=== PATIENT | male | born 1970 | race Caucasian/White ===

== ENCOUNTER 2016-07-24 16:24 | Observation (INO) | payer MEDICAID, MEDICARE, OTHER ==
[2016-07-24 16:25] VITALS: BMI 29.2
[2016-07-24 17:35] LABS: BASO % 0.4 % (0.0-2.0); EOS # 0.1 K/uL (0.0-0.7); EOS % 2.1 % (0.0-4.0); HEMATOCRIT 43.5 % (35.0-51.0); LYMPH # 3.2 K/uL (1.0-4.3); LYMPH % 54.3 % (20.0-40.0); MEAN CELL VOLUME 79.4 fL (80.0-94.0); MEAN CORPUSCULAR HEMOGLOBIN 25.9 pg (27.0-31.0); MEAN CORPUSCULAR HGB CONC 32.7 g/dL (33.0-37.0); MEAN PLATELET VOLUME 8.9 fL (7.2-11.7); MONO # 0.6 K/uL (0.0-0.8); MONO % 9.8 % (0.0-10.0); NRBC % 0.1 % (0.0-2.0); RED CELL DISTRIBUTION WIDTH 14.1 % (11.5-14.5); WHITE BLOOD COUNT 5.8 K/uL (4.8-10.8)
--- NOTE | 2016-07-24 17:36 | RAD ---
HISTORY: chest pain COMPARISON: None available TECHNIQUE: Chest PA and lateral FINDINGS: LUNGS: No focal consolidation. Please note that chest x-ray has limited sensitivity for the detection of pulmonary masses. PLEURA: No significant pleural effusion identified. No definite pneumothorax . CARDIOVASCULAR: The cardiomediastinal silhouette appears within normal limits of size. OSSEOUS STRUCTURES: No acute osseous abnormality identified. VISUALIZED UPPER ABDOMEN: Unremarkable. OTHER FINDINGS: None. IMPRESSION: No focal consolidation, significant pleural effusion, or definite pneumothorax identified.
[2016-07-24 17:40] LABS: CHLORIDE 102 mmol/L (98-107); POTASSIUM 4.3 mmol/L (3.6-5.2); SODIUM 141 mmol/L (132-148)
[2016-07-24 17:42] LABS: ALB/GLOB RATIO 1.4 (1.0-2.1); ALKALINE PHOSPHATASE 68 U/L (38-126); AST/SGOT 23 U/L (17-59); BILIRUBIN,TOTAL 0.6 mg/dL (0.2-1.3); BLOOD UREA NITROGEN 21 mg/dL (9-20); CARBON DIOXIDE 28 mmol/L (22-30); GFR AFRICAN-AMERICAN > 60; TOTAL PROTEIN 7.7 g/dL (6.3-8.3)
[2016-07-24 17:43] LABS: ALT/SGPT 29 U/L (21-72); CALCIUM 9.1 mg/dl (8.6-10.4); GLUCOSE,RANDOM 83 mg/dL (75-110)
--- NOTE | 2016-07-24 17:51 | C.PDOC ---
History Of Present Illness 46-year-old male, presents to the emergency department with complaints of chest pain and bilateral lower back pain. Patient states he has been experiencing chest pain, that started one week ago. the pain is intermittent and feels as if "something is rupturing". Patient states he was seen by Dr Camacho, who referred him to the ED for further eval. Time Seen by Provider: 07/24/16 16:58 Chief Complaint (Nursing): Chest Pain History Per: Patient History/Exam Limitations: no limitations Onset/Duration Of Symptoms: Days Current Symptoms Are (Timing): Still Present Past Medical History Reviewed: Historical Data, Nursing Documentation, Vital Signs Vital Signs: Last Vital Signs Temp 97.6 F 07/24/16 17:16 Pulse 66 07/24/16 18:00 Resp 17 07/24/16 18:00 BP 105/78 07/24/16 18:00 Pulse Ox 98 07/24/16 18:00 - Medical History PMH: Fractures (left leg), Chronic Kidney Disease Surgical History: Endoscopy Family History: States: Unknown Family Hx - Social History Hx Alcohol Use: No Hx Substance Use: No - Immunization History Hx Tetanus Toxoid Vaccination: No Hx Influenza Vaccination: No Hx Pneumococcal Vaccination: No Review Of Systems Except As Marked, All Systems Reviewed And Found Negative. Constitutional: Negative for: Fever, Chills Cardiovascular: Positive for: Chest Pain. Negative for: Edema Gastrointestinal: Negative for: Vomiting Skin: Negative for: Rash Physical Exam - Physical Exam Appears: Well, No Acute Distress Skin: Normal Color, Warm, Dry, No Rash Head: Atraumatic, Normacephalic Eye(s): bilateral: Normal Inspection, PERRL, EOMI Nose: Normal Throat: Normal Neck: Normal Cardiovascular: Rhythm Regular Respiratory: Normal Breath Sounds Gastrointestinal/Abdominal: Normal Exam Back: Normal Inspection Extremity: Normal ROM ED Course And Treatment - Laboratory Results Result Diagrams: 07/24/16 17:28 07/24/16 17:28 Lab Interpretation: No Acute Changes ECG: Interpreted By Me ECG Rhythm: Sinus Rhythm (with LVH) ECG Interpretation: No Acute Changes O2 Sat by Pulse Oximetry: 98 Pulse Ox Interpretation: Normal - Radiology CXR: Interpreted by Me CXR Interpretation: Yes: No Acute Disease Reevaluation Time: 18:59 Reassessment Condition: Unchanged - Physician Consult Information Time Consulting Physician Contacted: 18:59 Physician Contacted: Edilma Camacho Outcome Of Conversation: Patient to remain in the hospital for cardiac observation. Disposition - Disposition Disposition: HOSPITALIZED Disposition Time: 19:00 Condition: STABLE - POA Present On Arrival: None - Clinical Impression Clinical Impression: Chest pain - Scribe Statement The provider has reviewed the documentation as recorded by the Scribe Yuni Padilla All medical record entries made by the Yasmanyibe were at my direction and personally dictated by me. I have reviewed the chart and agree that the record accurately reflects my personal performance of the history, physical exam, medical decision making, and the department course for this patient. I have also personally directed, reviewed, and agree with the discharge instructions and disposition.
[2016-07-24] MEDS ORDERED: Aspirin 325 mg EC Tablets PO STA (19:12)
[2016-07-24] MEDS ORDERED: Aspirin 325 mg EC Tablets PO ONE (19:17)
--- NOTE | 2016-07-25 09:11 | CP.PCM.PN ---
Objective - Vital Signs/Intake and Output Vital Signs (last 24 hours): Temp Pulse Resp BP Pulse Ox 97.2 F L 61 20 114/76 98 07/25/16 07:46 07/25/16 07:46 07/25/16 07:46 07/25/16 07:46 07/25/16 07:46 Intake and Output: 07/25/16 07/25/16 06:59 18:59 Intake Total 110 Balance 110 - Medications Medications: Current Medications Aspirin (Aspirin) 325 mg PO DAILY [facility] Clopidogrel Bisulfate (Plavix) 75 mg PO DAILY [facility] Heparin Sodium (Porcine) (Heparin) 5,000 units SC Q12 [facility]
[2016-07-25 13:35] LABS: BASO % 0.6 % (0.0-2.0); EOS # 0.1 K/uL (0.0-0.7); EOS % 1.3 % (0.0-4.0); HEMATOCRIT 46.7 % (35.0-51.0); LYMPH # 2.7 K/uL (1.0-4.3); LYMPH % 50.6 % (20.0-40.0); MEAN CELL VOLUME 80.1 fL (80.0-94.0); MEAN CORPUSCULAR HEMOGLOBIN 25.8 pg (27.0-31.0); MEAN CORPUSCULAR HGB CONC 32.2 g/dL (33.0-37.0); MEAN PLATELET VOLUME 8.6 fL (7.2-11.7); MONO # 0.5 K/uL (0.0-0.8); MONO % 9.3 % (0.0-10.0); WHITE BLOOD COUNT 5.4 K/uL (4.8-10.8)
[2016-07-25 13:44] LABS: CHLORIDE 92 mmol/L (98-107); POTASSIUM 3.8 mmol/L (3.6-5.2); SODIUM 142 mmol/L (132-148)
[2016-07-25 13:46] LABS: GFR AFRICAN-AMERICAN > 60
[2016-07-25 13:47] LABS: ALB/GLOB RATIO 1.3 (1.0-2.1); ALKALINE PHOSPHATASE 72 U/L (38-126); ALT/SGPT 30 U/L (21-72); AST/SGOT 24 U/L (17-59); BILIRUBIN,TOTAL 0.7 mg/dL (0.2-1.3); BLOOD UREA NITROGEN 17 mg/dL (9-20); CALCIUM 9.5 mg/dl (8.6-10.4); CARBON DIOXIDE 28 mmol/L (22-30); GLUCOSE,RANDOM 107 mg/dL (75-110); TOTAL PROTEIN 7.8 g/dL (6.3-8.3)
[2016-07-25 13:48] LABS: MAGNESIUM 2.2 mg/dL (1.6-2.3)
--- NOTE | 2016-07-25 14:46 | CP.PCM.CON ---
History of Present Illness - History of Present Illness History of Present Illness: I was asked to see patient by Dr. Camacho. Patient is a 46 year old male with PMH HTN, hypercholesterolemia who presents with chest pain. He describes substernal chest pressure wthout radiation. Symptoms occurred with walking. The patient had associated dyspnea. He ruled out for myocardial infarction. Review of Systems - Constitutional Constitutional: absent: As Per HPI, Anorexia, Chills, Daytime Sleepiness, Excessive Sweating, Fatigue, Fever, Frequent Falls, Headache, Increased Appetite , Lethargy, Malaise, Night Sweats, Snoring, Sleep Apnea, Weight Gain, Weight Loss, Weakness, Other - EENT Eyes: absent: As Per HPI, Blind Spots, Blurred Vision, Change in Vision, Decreased Night Vision, Diplopia, Discharge, Dry Eye, Exophthalmos, Floaters, Irritation, Itchy Eyes, Loss of Peripheral Vision, Pain, Photophobia, Requires Corrective Lenses, Sees Flashes, Spots in Vision, Tunnel Vision, Other Visual Disturbances, Loss of Vision, Other Ears: absent: As Per HPI, Decreased Hearing, Ear Discharge, Ear Pain, Tinnitus, Abnormal Hearing, Disequilibrium, Dizziness, Other Nose/Mouth/Throat: absent: As Per HPI, Epistaxis, Nasal Congestion, Nasal Discharge, Nasal Obstruction, Nasal Trauma, Nose Pain, Post Nasal Drip, Sinus Pain, Sinus Pressure, Bleeding Gums, Change in Voice, Dental Pain, Dry Mouth, Dysphagia, Halitosis, Hoarsness, Lip Swelling, Mouth Lesions, Mouth Pain, Odynophagia, Sore Throat, Throat Swelling, Tongue Swelling, Facial Pain, Neck Pain, Neck Mass, Other - Cardiovascular Cardiovascular: Chest Pain at Rest, Dyspnea - Respiratory Respiratory: absent: As Per HPI, Cough, Dyspnea, Hemoptysis, Dyspnea on Exertion , Wheezing, Snoring, Stridor, Pain on Inspiration, Chest Congestion, Excessive Mucous Production, Change in Mucous Color, Pain with Coughing, Other - Gastrointestinal Gastrointestinal: absent: As Per HPI, Abdominal Pain, Belching, Bloating, Change in Bowel Habits, Change in Stool Character, Coffee Ground Emesis, Constipation, Cramping, Diarrhea, Dyspepsia, Dysphagia, Early Satiety, Excessive Flatus, Fecal Incontinence, Heartburn, Hematemesis, Hematochezia, Loose Stools, Melena, Nausea, Odynophagia, Temesmus, Vomiting, Other - Genitourinary Genitourinary: absent: As Per HPI, Change in Urinary Stream, Difficulty Urinating, Dysuria, Flank Pain, Hematuria, Pyuria, Nocturia, Urinary Incontinence, Urinary Frequency, Urinary Hesitance, Urinary Urgency, Voiding Freq/Small Amts, Freq UTI, Hx Renal/Bladder Calculi, Hx /Renal Surgery, Bladder Distension, Other - Musculoskeletal Musculoskeletal: absent: As Per HPI, Abnormal Gait, Arthralgias, Atrophy, Back Pain, Deformity, Joint Swelling, Limited Range of Motion, Loss of Height, Muscle Cramps, Muscle Weakness, Myalgias, Neck Pain, Numbness, Radiating Pain into Limb, Stiffness, Tingling, Other - Integumentary Integumentary: absent: As Per HPI, Acne, Alopecia, Bleeding Lesions, Change in Hair, Change in Nails, Change in Pigmentation, Changing Lesions, Dry Skin, Erythema, Furuncle, Hirsutism, Lesions, New Lesions, Non-Healing Lesions, Photosensitivity, Pruritus, Rash, Skin Pain, Skin Ulcer, Sores, Striae, Swelling , Unusual Bruising, Wounds, Jaundice, Other - Neurological Neurological: absent: As Per HPI, Abnormal Gait, Abnormal Hearing, Abnormal Movements, Abnormal Speech, Behavioral Changes, Burning Sensations, Confusion, Convulsions, Disequilibrium, Dizziness, Numbness, Focal Weakness, Frequent Falls , Headaches, Lack of Coordination, Loss of Vision, Memory Loss, Paresthesias, Radicular Pain, Restless Legs, Sensory Deficit, Syncope, Tingling, Tremor, Vertigo, Weakness, Other Visual Disturbances, Other - Psychiatric Psychiatric: absent: As Per HPI, Abnormal Sleep Pattern, Anhedonia, Anxiety, Auditory Hallucinations, Behavioral Changes, Change in Appetite, Change in Libido, Confusion, Depression, Difficulty Concentrating, Hallucinations, Homicidal Ideation, Hopelessness, Irritability, Memory Loss, Mood Swings, Panic Attacks, Paranoia, Suicidal Ideation, Visual Hallucinations, Tactile Hallucinations, Other - Endocrine Endocrine: absent: As Per HPI, Change in Body Appearance, Change in Libido, Cold Intolorance, Deepening of Voice, Excessive Sweating, Fatigue, Flushing, Heat Intolorance, Increase in Ring/Shoe/Hat Size, Palpitations, Polydipsia, Polyphagia, Polyuria, Other - Hematologic/Lymphatic Hematologic: absent: As Per HPI, Easy Bleeding, Easy Bruising, Lymphadenopathy, Other Past Patient History - Past Medical History & Family History Past Medical History?: Yes - Past Social History Smoking Status: Never Smoked - CARDIAC Hx Cardiac Disorders: No - PULMONARY Hx Respiratory Disorders: No - NEUROLOGICAL Hx Neurological Disorder: No - HEENT Hx HEENT Problems: No - RENAL Hx Chronic Kidney Disease: Yes Other/Comment: hydronephrosis - ENDOCRINE/METABOLIC Hx Endocrine Disorders: Yes Hx Diabetes Mellitus Type 2: No - HEMATOLOGICAL/ONCOLOGICAL Hx Blood Disorders: No - INTEGUMENTARY Hx Dermatological Problems: Yes Other/Comment: sebaceous cyst right shoulder - MUSCULOSKELETAL/RHEUMATOLOGICAL Hx Musculoskeletal Disorders: No Hx Falls: No - GASTROINTESTINAL Hx Gastrointestinal Disorders: Yes Hx Hemorrhoids: Yes - GENITOURINARY/GYNECOLOGICAL Hx Genitourinary Disorders: No - PSYCHIATRIC Hx Psychophysiologic Disorder: No Hx Substance Use: No - SURGICAL HISTORY Hx Surgeries: Yes Other/Comment: Hemorrhoidectomy,right shoulder surgery - ANESTHESIA Hx Anesthesia: Yes Hx Anesthesia Reactions: No Hx Malignant Hyperthermia: No Meds Home Medications: Home Medication List Medication Instructions Recorded Confirmed Type Aspirin 81 mg PO DAILY #30 tab.chew 07/25/16 Rx Allergies/Adverse Reactions: Allergies Allergy/AdvReac Type Severity Reaction Status Date / Time No Known Allergies Allergy Verified 07/24/16 17:09 - Medications Medications: Current Medications Aspirin (Aspirin) 325 mg PO DAILY [facility] Last Admin: 07/25/16 14:15 Dose: 325 mg Clopidogrel Bisulfate (Plavix) 75 mg PO DAILY [facility] Last Admin: 07/25/16 14:15 Dose: 75 mg Heparin Sodium (Porcine) (Heparin) 5,000 units SC Q12 [facility] Last Admin: 07/25/16 10:00 Dose: Not Given Physical Exam - Constitutional Appears: Non-toxic - Head Exam Head Exam: NORMAL INSPECTION - Eye Exam Eye Exam: Normal appearance - ENT Exam ENT Exam: Mucous Membranes Moist - Neck Exam Neck exam: Positive for: Full Rom - Respiratory Exam Respiratory Exam: Decreased Breath Sounds - Cardiovascular Exam Cardiovascular Exam: REGULAR RHYTHM - GI/Abdominal Exam GI & Abdominal Exam: Normal Bowel Sounds - Rectal Exam Rectal Exam: Deferred - Extremities Exam Extremities exam: Negative for: pedal edema - Back Exam Back exam: NORMAL INSPECTION - Neurological Exam Neurological exam: Alert, Oriented x3 - Psychiatric Exam Psychiatric exam: Normal Affect - Skin Skin Exam: Normal Color Results - Vital Signs Recent Vital Signs: Last Vital Signs Temp 97.2 F L 07/25/16 07:46 Pulse 61 07/25/16 07:46 Resp 20 07/25/16 07:46 BP 114/76 07/25/16 07:46 Pulse Ox 98 07/25/16 07:46 - Labs Result Diagrams: 07/25/16 13:28 07/25/16 13:28 Labs: Laboratory Results - last 24 hr 07/25/16 07/25/16 07/25/16 02:25 13:28 13:28 WBC 5.4 RBC 5.83 Hgb 15.0 Hct 46.7 MCV 80.1 MCH 25.8 L MCHC 32.2 L RDW 14.0 Plt Count 322 MPV 8.6 Neut % (Auto) 38.2 L Lymph % (Auto) 50.6 H Rhea % (Auto) 9.3 Eos % (Auto) 1.3 Baso % (Auto) 0.6 Neut # 2.1 Lymph # 2.7 Rhea # 0.5 Eos # 0.1 Baso # 0.0 Sodium 142 Potassium 3.8 Chloride 92 L Carbon Dioxide 28 Anion Gap 26 H BUN 17 Creatinine 0.8 Est GFR ( Amer) > 60 Est GFR (Non-Af Amer) > 60 Random Glucose 107 Calcium 9.5 Magnesium 2.2 Total Bilirubin 0.7 AST 24 ALT 30 Alkaline Phosphatase 72 Total Creatine Kinase 183 H CK-MB (Mass) 0.99 Troponin I, Quant 0.0210 Total Protein 7.8 Albumin 4.4 Globulin 3.3 Albumin/Globulin Ratio 1.3 - EKG Data EKG Interpreted by: Myself Assessment & Plan - Assessment and Plan (Free Text) Assessment: chest pain. patient has ruled out for myocardial infarction. recommend stress test to assess for myocardial ischemia. risk factor modification discussed. - Date & Time Date: 07/25/16 Time: 09:30
--- NOTE | 2016-07-25 14:48 | CP.PCM.PN ---
Subjective - Date & Time of Evaluation Date of Evaluation: 07/25/16 Time of Evaluation: 14:45 - Subjective Subjective: nuclear stress test is normal. Patient is stable for discharge Objective - Vital Signs/Intake and Output Vital Signs (last 24 hours): Temp Pulse Resp BP Pulse Ox 97.2 F L 61 20 114/76 98 07/25/16 07:46 07/25/16 07:46 07/25/16 07:46 07/25/16 07:46 07/25/16 07:46 Intake and Output: 07/25/16 07/25/16 06:59 18:59 Intake Total 110 Balance 110 - Medications Medications: Current Medications Aspirin (Aspirin) 325 mg PO DAILY [facility] Last Admin: 07/25/16 14:15 Dose: 325 mg Clopidogrel Bisulfate (Plavix) 75 mg PO DAILY [facility] Last Admin: 07/25/16 14:15 Dose: 75 mg Heparin Sodium (Porcine) (Heparin) 5,000 units SC Q12 [facility] Last Admin: 07/25/16 10:00 Dose: Not Given - Labs Labs: 07/25/16 13:28 07/25/16 13:28
[2016-07-25 15:40] VITALS: BP 121/74; PULSE 59; RESP 18; TEMP 97.4; O2SAT 96
--- NOTE | 2016-07-25 15:45 | CP.PCM.PN ---
Subjective - Date & Time of Evaluation Date of Evaluation: 07/25/16 Time of Evaluation: 12:00 - Subjective Subjective: Medicine Progress - Dr. Camacho's Service: Patient seen and examined at bedside this AM. Patient reports no chest pain this morning. He went for stress test this AM, which was normal. Patient will be discharged today with Aspirin 81 mg PO daily as per Dr. Camacho. Interpreting service used. Objective - Vital Signs/Intake and Output Vital Signs (last 24 hours): Temp Pulse Resp BP Pulse Ox 97.4 F L 59 L 18 121/74 96 07/25/16 15:37 07/25/16 15:37 07/25/16 15:37 07/25/16 15:37 07/25/16 15:37 Intake and Output: 07/25/16 07/25/16 06:59 18:59 Intake Total 110 Balance 110 - Medications Medications: Current Medications Aspirin (Aspirin) 325 mg PO DAILY [facility] Last Admin: 07/25/16 14:15 Dose: 325 mg Clopidogrel Bisulfate (Plavix) 75 mg PO DAILY [facility] Last Admin: 07/25/16 14:15 Dose: 75 mg Heparin Sodium (Porcine) (Heparin) 5,000 units SC Q12 [facility] Last Admin: 07/25/16 10:00 Dose: Not Given - Labs Labs: 07/25/16 13:28 07/25/16 13:28 - Constitutional Appears: No Acute Distress - Head Exam Head Exam: NORMAL INSPECTION, NORMOCEPHALIC - Eye Exam Eye Exam: EOMI, Normal appearance - ENT Exam ENT Exam: Mucous Membranes Moist - Neck Exam Neck Exam: Full ROM - Respiratory Exam Respiratory Exam: Clear to Ausculation Bilateral, NORMAL BREATHING PATTERN - Cardiovascular Exam Cardiovascular Exam: REGULAR RHYTHM, +S1, +S2 - GI/Abdominal Exam GI & Abdominal Exam: Soft. absent: Distended, Tenderness - Extremities Exam Extremities Exam: Full ROM, Normal Inspection - Back Exam Back Exam: NORMAL INSPECTION - Neurological Exam Neurological Exam: Alert, Awake, Oriented x3 - Psychiatric Exam Psychiatric exam: Normal Affect, Normal Mood - Skin Skin Exam: Normal Color, Warm Assessment and Plan (1) Chest pain Assessment & Plan: Cardio consult - Dr. Maxwell. MANUEL negative X2 EKG Normal sinus rhythm. Moderate voltage criteria for LVH Patient was placed on Plavix, ASA and Crestor. Nuclear Stress test done today was normal. Patient stable for discharge as per cardio. Patient DC with Aspirin 81 mg PO daily as per Dr. Maxwell. f/u ECHO results as outpatient. Patient discharged as per Dr. Camacho. Status: Acute
--- NOTE | 2016-07-25 18:00 | CARD ---
APPROVED REPORT Protocol: LUPE Test Type: MYOVIEW STRESS Test Indications: CHEST PAIN Medications: LIST SCAN Target HR: 175 bpm Resting ECG: normal Resting Heart Rate: 69 bpm Resting Blood Pressure: /mmHg submaximum (85%): 149 bpm TEST SUMMARY [id number]:02..1.068/.0. PRETESTWARM-UP01:511.00.01.768/.0. EXERCISESTAGE 103:[id number]/80.0. EXERCISESTAGE 203:[id number]/80.0. EXERCISESTAGE 303:[id number]/80.0. EXERCISESTAGE 400:154.279.942.5253/.0. [id number]:[id number]/80.0. POST EXERCISE Reason for Termination: Target heart rate achieved Target HR: No Max HR: 136 bpm 80% of Maximum Predicted HR: 175 bpm Exercise duration: 09:14 min:sec, 4 Stage Exercise capacity: 10.8METs Max Blood Pressure: 166/80mmHg Blood Pressure response to exercise: normal resting BP - appropriate response Heart Rate response to exercise: appropriate Chest Pain: No, none Angina index: 0 Arrhythmia: No, none ST Change: No, none Deviation: 0 mm INTERPRETATION Stress EKG Conclusion: AWAIT NUCLEAR IMAGES EXAM: Myocardial Perfusion REST/STRESS Imaging Protocol The imaging protocol used to acquire images was Rest Tc-99m/stress Tc-99m 1 day Rest Spect myocardial perfusion imaging was performed in supine position 45 minutes following the injection of 13.1 mCi of Tc-99 Myoview. Gated Stress Spect was performed 55 minutes after intravenous 32.3 mci Tc-99 Myoview injection. The images were gated to evaluate regional wall motion and calculate ventricular ejection fraction.Images were reconstructed using backfilter projection method in short horizontal and verticle long axis. Spect slices were generated. STRESS DATA EDV86.38jsGD2.20L/min ESV22.00mlMyocardial Rfes105.00g EF74.00% Regional WT score at stress:0.00 Regional WM score at stress:0.00 Summed WT score at stress:4.00 Av. Heart Rate66.00bpmSummed WM score at stress:0.00 LV Perf. Quant 17 Seg. SSS0.00 17 Seg. SRS2.00 17 Seg. SDS0.00 Stress Defect Extent (% LAD)0.00Rest Defect Extent (% LAD)0.00Rev. Defect Extent (% LAD)0.00 Stress Defect Extent (% LCX)0.00Rest Defect Extent (% LCX)17.50Rev. Defect Extent (% LCX)0.00 Stress Defect Extent (% RCA)0.00Rest Defect Extent (% RCA)0.00Rev. Defect Extent (% RCA)0.00 Stress Defect Extent (% SOPHIE)0.00Rest Defect Extent (% SOPHIE)4.10Rev. Defect Extent (% SOPHIE)0.00 Other Information Quality:Excellent Overall Exercise Capacity: Normal IMPRESSION Normal Myocardial Perfusion exercise stress study Global LV Function: Normal Stress Test Summary: Normal LV Perfusion Summary: Normal Left Ventricle LV Size/Shape: The left ventricle is normal size. LV Function:Left ventricle systolic function is normal. The Ejection Fraction is 55-60%. Regional Wall Motion:No regional wall motion abnormalities noted. Metabolism/Perfusion There are no perfusion/metabolism defects. Conclusion 1. The stress and resting images show normal perfusion.
--- NOTE | 2016-07-26 07:51 | CARD ---
APPROVED REPORT EXAM: Two-dimensional and M-mode echocardiogram with Doppler and color Doppler. Other Information Quality : AverageGoodRhythm : NSR INDICATION Chest Pain CKD M-Mode DIMENSIONS RVDd2.34 (2.1-3.2cm)Left Atrium (MM)3.83 (2.5-4.0cm) IVSd0.73 (0.7-1.1cm)Aortic Root2.19 (2.2-3.7cm) LVDd4.49 (4.0-5.6cm)Aortic Cusp Exc.1.70 (1.5-2.0cm) PWd0.70 (0.7-1.1cm)FS (%) 31 % LVDs3.10 (2.0-3.8cm)LVEF (%)59 (>50%) Mitral Valve MV E Bkhanwth92.3cm/sMV A Wtyodrcj35.6cm/sE/A ratio1.3 TDI E/Lateral E'0.0E/Medial E'0.0 Tricuspid Valve TR Peak Yqtysguk915kx/sTR Peak Gr.22isHdIPRY07kyRy LEFT VENTRICLE The left ventricle is normal size. There is normal left ventricular wall thickness. The left ventricular function is normal. The left ventricular ejection fraction is within the normal range. The Ejection Fraction is >55%. No regional wall motion abnormalities noted. The left ventricular diastolic function is normal. No left ventricle thrombus noted on this study. There is no ventricular septal defect visualized. There is no left ventricular aneurysm. There is no mass noted in the left ventricle. RIGHT VENTRICLE The right ventricle is normal size. There is normal right ventricular wall thickness. The right ventricular systolic function is normal. ATRIA The left atrium size is normal. The right atrium size is normal. The interatrial septum is intact with no evidence for an atrial septal defect. AORTIC VALVE The aortic valve is normal in structure and function. No aortic regurgitation is present. There is no aortic valvular stenosis. There is no aortic valvular vegetation. MITRAL VALVE The mitral valve is normal in structure and function. There is no evidence of mitral valve prolapse. There is no mitral valve stenosis. There is no mitral valve regurgitation noted. TRICUSPID VALVE The tricuspid valve is normal in structure and function. There is trace tricuspid regurgitation. There is no tricuspid valve prolapse or vegetation. There is no tricuspid valve stenosis. PULMONIC VALVE The pulmonary valve is normal in structure and function. There is no pulmonic valvular regurgitation. There is no pulmonic valvular stenosis. GREAT VESSELS The aortic root is normal in size. The ascending aorta is normal in size. The pulmonary artery is normal. The IVC is normal in size and collapses >50% with inspiration. PERICARDIAL EFFUSION The pericardium appears normal. There is no pleural effusion. <Conclusion> The left ventricle is normal size. The left ventricular function is normal. The left ventricular ejection fraction is within the normal range. The Ejection Fraction is >55%. There is trace tricuspid regurgitation.
--- NOTE | 2016-07-29 10:10 | CARD ---
APPROVED REPORT EKG Measurement Heart [id number] VA [id number] [id number] <Conclusion> Normal sinus rhythm Moderate voltage criteria for LVH, may be normal variant Borderline ECG
--- NOTE | 2016-08-16 11:22 | HP ---
The patient admitted to the hospital with chief complaint of generalized weakness, fatigue, tiredness . The patient bedrest and advised admission. PHYSICAL EXAMINATION: GENERAL: The patient is awake, alert, oriented. VITAL SIGNS: Temperature 98, pulse 90. HEENT: Within normal limits. NECK: Supple. CHEST: Symmetrical. HEART: Regular. ABDOMEN: Soft. EXTREMITIES: No edema. The patient will get bedrest, supportive care. Edilma Shearer MD cc: [id number] TT: 08/16/2016 07:49:30 en 08/20/2016 07:18:10
== END 2016-07-25 16:35 | disposition home or self-care (01) ==
LOC: C.ER 16:24 → C.9E 19:00 → C.6T 20:33
PROVIDERS: ADMIT Internal Medicine Pulmonary Disease; ATTEND Internal Medicine Pulmonary Disease
DX: R07.9 Chest pain, unspecified (principal); E78.00 Pure hypercholesterolemia, unspecified; I12.9 Hypertensive chronic kidney disease with stage 1 through stage 4 chronic kidney disease, or unspecified chronic kidney disease
CPT/HCPCS: 36415; 71020; 78452; 80053; 82948; 83690; 83735; 84484; 85025; 93005; 93017; 93306; 99285; A9502; G0378

== ENCOUNTER 2017-01-22 16:09 | Emergency (ER) | payer OTHER ==
[2017-01-22 16:10] VITALS: BMI 29.2
[2017-01-22 16:21] VITALS: O2SAT 99
--- NOTE | 2017-01-22 17:04 | C.PDOC ---
History Of Present Illness 46 y/o male c/o left anterior chest wall and left hip pain today. Patient notes that he was on a chair on top of a desk when he fell hitting his left anterior chest wall on the edge of the desk. The patient then fell on the floor hitting his left hip. He had the breath out him. Patient was able to ambulate, but with pain. Patient went to see his PMD Dr. Camacho who sent him here for evaluation and a CXR. Denies head injury, weakness, or numbness. No SOB or abdominal pain. - HPI Time Seen by Provider: 01/22/17 16:34 Chief Complaint (Nursing): Trauma History Per: Patient History/Exam Limitations: no limitations Onset/Duration Of Symptoms: Hrs Severity: Mild Recent travel outside of the [place]: No Additional History Per: Patient - Fall Fall:Prior To Injury: Other (Fell out of a chair on top of a desk) Past Medical History Reviewed: Historical Data, Nursing Documentation, Vital Signs Vital Signs: Last Vital Signs Temp 97.3 F L 01/22/17 16:16 Pulse 63 01/22/17 16:16 Resp 20 01/22/17 16:16 BP 133/80 01/22/17 16:16 Pulse Ox 99 01/22/17 17:14 - Medical History PMH: Fractures (left leg), Chronic Kidney Disease Surgical History: Endoscopy Family History: States: Unknown Family Hx - Social History Hx Alcohol Use: No Hx Substance Use: No - Immunization History Hx Tetanus Toxoid Vaccination: No Hx Influenza Vaccination: No Hx Pneumococcal Vaccination: No Review Of Systems Except As Marked, All Systems Reviewed And Found Negative. Constitutional: Negative for: Other (Head injury) Cardiovascular: Positive for: Chest Pain Respiratory: Negative for: Shortness of Breath Musculoskeletal: Positive for: Other (Left hip pain) Neurological: Negative for: Weakness, Numbness, Dizziness Physical Exam - Physical Exam Appears: Non-toxic, No Acute Distress (Discomfort when taking deep breath) Skin: Warm, Dry, Other (No bruising or laceration noted throughout the body) Head: Atraumatic (Neck nor head), Normacephalic Eye(s): bilateral: Normal Inspection Neck: Supple Chest: Symmetrical, Tenderness (Chest wall tenderness to the anterior nipple line along the lower ribs) Cardiovascular: Rhythm Regular, No Murmur Respiratory: Normal Breath Sounds, No Rales, No Rhonchi, No Wheezing Gastrointestinal/Abdominal: Soft, No Tenderness Back: Normal Inspection, No CVA Tenderness Extremity: Normal ROM (FROM of hip) Neurological/Psych: Oriented x3 Gait: Steady ED Course And Treatment - Laboratory Results Result Diagrams: 01/22/17 17:07 01/22/17 17:07 Lab Interpretation: Normal O2 Sat by Pulse Oximetry: 99 (RA) Pulse Ox Interpretation: Normal - Radiology CXR Interpretation: Yes: No Acute Disease, Other (Rib films also negative for acute displaced fracture.) Reevaluation Time: 17:51 Reassessment Condition: Improved - Physician Consult Information Time Consulting Physician Contacted: 18:01 Physician Contacted: Edilma Camacho Outcome Of Conversation: He will follow up with patient in the office. Medical Decision Making Medical Decision Making: Plans: * Blood labs * CXR * UA * IV fluids * Dilaudid Disposition Counseled Patient/Family Regarding: Studies Performed, Diagnosis, Need For Followup, Rx Given - Disposition Referrals: Edilma Camacho MD [Staff Provider] - Disposition: HOME/ ROUTINE Disposition Time: 17:58 Condition: IMPROVED Prescriptions: Tramadol HCl [Ultram] 50 mg PO QID PRN #14 tab PRN Reason: Pain, Severe (8-10) Instructions: Rib Contusion (ED) Forms: [facility] (Yakut) - Clinical Impression Clinical Impression: Contusion of rib on left side - Scribe Statement The provider has reviewed the documentation as recorded by the Scribe Terrie patterson All medical record entries made by the Scribe were at my direction and personally dictated by me. I have reviewed the chart and agree that the record accurately reflects my personal performance of the history, physical exam, medical decision making, and the department course for this patient. I have also personally directed, reviewed, and agree with the discharge instructions and disposition.
[2017-01-22] MEDS ORDERED: HYDROmorphone 1 mg/ml ISec ONE (17:12)
[2017-01-22 17:16] LABS: BASO % 0.5 % (0.0-2.0); EOS # 0.1 K/uL (0.0-0.7); EOS % 1.4 % (0.0-4.0); HEMATOCRIT 44.1 % (35.0-51.0); LYMPH # 2.7 K/uL (1.0-4.3); LYMPH % 41.3 % (20.0-40.0); MEAN CELL VOLUME 79.2 fL (80.0-94.0); MEAN CORPUSCULAR HEMOGLOBIN 26.1 pg (27.0-31.0); MEAN CORPUSCULAR HGB CONC 32.9 g/dL (33.0-37.0); MEAN PLATELET VOLUME 8.2 fL (7.2-11.7); MONO # 0.6 K/uL (0.0-0.8); MONO % 8.8 % (0.0-10.0); NRBC % 0.1 % (0.0-2.0); RED CELL DISTRIBUTION WIDTH 15.1 % (11.5-14.5); WHITE BLOOD COUNT 6.6 K/uL (4.8-10.8)
[2017-01-22 17:20] LABS: CHLORIDE 100 mmol/L (98-107); POTASSIUM 3.9 mmol/L (3.6-5.2); SODIUM 136 mmol/L (132-148)
[2017-01-22 17:21] LABS: RBC URINE < 1 /hpf (0-3); URINE BILIRUBIN NEGATIVE (NEGATIVE); URINE BLOOD NEGATIVE (NEGATIVE); URINE COLOR Straw (YELLOW); URINE GLUCOSE (UA) NORMAL (Normal); URINE KETONE NEGATIVE (NEGATIVE); URINE LEUKOCYTE ESTERASE NEG Leu/uL (Negative); URINE PROTEIN NEGATIVE (NEGATIVE); URINE UROBILINOGEN NORMAL mg/dL (0.2-1.0); WBC URINE 1 /hpf (0-5)
[2017-01-22 17:23] LABS: ALB/GLOB RATIO 1.6 (1.0-2.1); ALKALINE PHOSPHATASE 73 U/L (38-126); ALT/SGPT 60 U/L (21-72); AST/SGOT 22 U/L (17-59); BILIRUBIN,TOTAL 0.7 mg/dL (0.2-1.3); BLOOD UREA NITROGEN 18 mg/dL (9-20); CARBON DIOXIDE 24 mmol/L (22-30); GFR AFRICAN-AMERICAN > 60; GLUCOSE,RANDOM 83 mg/dL (75-110); TOTAL PROTEIN 7.6 g/dL (6.3-8.3)
[2017-01-22 17:24] LABS: CALCIUM 8.9 mg/dl (8.6-10.4)
--- NOTE | 2017-01-22 17:37 | RAD ---
HISTORY: chest injury r/o pneumo COMPARISON: Chest x-ray performed 07/24/16 TECHNIQUE: Chest PA and lateral FINDINGS: LUNGS: No focal consolidation. Please note that chest x-ray has limited sensitivity for the detection of pulmonary masses. PLEURA: No significant pleural effusion identified. No definite pneumothorax . CARDIOVASCULAR: The cardiomediastinal silhouette appears within normal limits of size. OSSEOUS STRUCTURES: Degenerative changes of the spine. VISUALIZED UPPER ABDOMEN: Unremarkable. OTHER FINDINGS: None. IMPRESSION: No focal consolidation, significant pleural effusion, or definite pneumothorax identified.
--- NOTE | 2017-01-22 17:48 | RAD ---
PROCEDURE: Radiographs of the left ribs. HISTORY: injury COMPARISON: Chest x-ray performed 01/22/17 TECHNIQUE: Frontal radiograph of the chest and multiple oblique radiographs of the left ribs were obtained. FINDINGS: LEFT RIBS: No acute displaced fracture. LUNGS: No focal consolidation. Please note that chest x-ray has limited sensitivity for the detection of pulmonary masses. PLEURA: No definite pneumothorax. No significant pleural effusion identified. CARDIOVASCULAR: Heart size appears within normal limits. OTHER FINDINGS: None. IMPRESSION: Unremarkable radiographs of the chest and left ribs. No appreciable displaced left rib fracture.
[2017-01-22 18:25] VITALS: BP 115/74; PULSE 61; RESP 16; TEMP 97.6
== END 2017-01-22 18:25 | disposition home or self-care (01) ==
LOC: C.ER 16:09
DX: S20.212A Contusion of left front wall of thorax, initial encounter (principal); W17.89XA Other fall from one level to another, initial encounter
CPT/HCPCS: 71020; 71100; 80053; 81001; 85025; 96374; 99284; J1170